=== PATIENT | male | born 1940 | race Caucasian/White ===

== ENCOUNTER → 2017-04-03 | Outpatient (CLI) | payer MEDICARE, OTHER ==
[~2017-04-03] MED LIST: ACCUPRIL40 MG PO; ASPIRIN E.C.325 MG PO; CIPRO500 MG PO; COREG25 MG PO; FLOMAX0.4 MG PO; HYDROCODONE BIT1 T11 PO; IMDUR SA60 M1 PO; LASIX80 MG PO; METFORMIN HCL500 MG PO; NORCO 325 MG-51 TAB PO; PREDNICOT10 MG PO; ZOCOR80 MG PO; ZOFRAN4 MG PO
[2017-04-03 12:47] LABS: BASO % 0.5 % (0.0-1.0); EOS # 0.2 10*3/uL (0.0-0.4); EOS % 2.6 % (1.0-4.0); HEMATOCRIT 35.7 % (42.0-52.0); HEMOGLOBIN 11.5 g/dl (14.0-18.0); LYMPH # 1.3 10*3/uL (1.3-4.4); LYMPH % 19.2 % (27.0-41.0); MEAN CELL VOLUME 99.7 fl (80.0-94.0); MEAN CORPUSCULAR HGB 32.1 pg (27.0-31.0); MEAN CORPUSCULAR HGB CONC 32.2 g/dl (33.0-37.0); MEAN PLATELET VOLUME 10.5 fl (9.6-12.3); MONO # 0.6 10*3/uL (0.1-1.0); MONO % 8.4 % (3.0-9.0); NEUT # 4.5 10*3/uL (2.3-7.9); PLATELET COUNT AUTOMATED 167 10*3/uL (130-400); RED BLOOD COUNT 3.58 10*6/uL (4.50-5.90); RED CELL DISTRI WIDTH 15.2 % (0-14.5); WHITE BLOOD COUNT 6.6 10*3/uL (4.8-10.8)
[2017-04-03 13:14] LABS: ALBUMIN 3.4 gm/dl (3.1-4.5); CREATININE 1.89 mg/dL (0.70-1.30); POTASSIUM 3.9 mmol/L (3.5-5.1); TOTAL PROTEIN 6.9 gm/dL (6.4-8.2)
[2017-04-03 13:22] LABS: THYROID STIM HORMONE (HS) 2.19 uIU/ml (0.358-4.75)
== END | disposition home or self-care (01) ==
LOC: LAB 12:21
PROVIDERS: Internal Medicine
DX: E11.9 Type 2 diabetes mellitus without complications (principal); I50.33 Acute on chronic diastolic (congestive) heart failure; E78.2 Mixed hyperlipidemia

== ENCOUNTER → 2017-04-16 | Outpatient (CLI) | payer MEDICARE, OTHER ==
[~2017-04-16] MED LIST changes: +BUMETANIDE2 MG PO; +GLYBURIDE5 MG PO; +POTASSIUM CHLO10 ME5 PO; +TRICOR48 MG PO; +ZOCOR20 MG PO
== END | disposition home or self-care (01) ==
LOC: CARD 14:40
DX: I50.32 Chronic diastolic (congestive) heart failure (principal); I07.1 Rheumatic tricuspid insufficiency

== ENCOUNTER 2017-04-21 19:40 | Inpatient (IN) | payer MEDICARE, OTHER ==
[~2017-04-21] VITALS: Ht 167.6 cm; Wt 108.0 kg
--- NOTE | ~2017-04-21 | ST ---
[place], [place] EXERCISE STRESS TEST REPORT NAME: FAN ELIZABETH UNIT #: [id number] ROOM: [place] [address] DOCTOR: SAM HUBER MD BIRTHDATE: [birth year] DOS: 04/26/2017 LEXISCAN STRESS EKG. REFERRING PHYSICIAN: Dr. Juanito Singh. INDICATION: CHF, shortness of breath, CAD. The patient underwent standard protocol Lexiscan stress EKG. The patient's baseline EKG shows atrial fibrillation with nonspecific ST-T wave changes. The patient's baseline heart rate is 80 with a blood pressure 136/78. The patient's peak heart rate was 95 with a blood pressure of 118/70. The patient had no chest pain, no EKG changes, no significant arrhythmias aside from baseline AFib. SUMMARY OF FINDINGS: Unremarkable Lexiscan stress EKG. Please see separate report for perfusion scan results. SAM HUBER MD CM:STRESS:EXERCISE STRESS TEST REPORT [id number] SAM HUBER MD
--- NOTE | ~2017-04-21 | PR ---
[place], [place] PROGRESS NOTE NAME: FAN ELIZABETH UNIT #: [id number] ROOM: [facility] DOCTOR: SANDY KEITH MD,SAVAGE BIRTHDATE: [birth year] DOS: 04/30/2017 SUBJECTIVE: He has been noted comfortable at this time without any acute distress. Denies symptoms of acute shortness of breath, coughing, sputum expectoration, using the BiPAP at nighttime. OBJECTIVE: VITAL SIGNS: For the patient which has been recorded shows normal temperature, respiratory rate 18, heart rate 84, blood pressure 104/56. Pulse oxygen saturation on room air was 96% saturation. HEAD, EARS, EYES, NOSE AND THROAT: No acute change. Chronic obesity. NECK: Supple. CARDIOVASCULAR: S1, S2 audible. LUNGS: The patient was noted without any wheezing or crackles at this time. Breaths are noted mild to moderate decreased lower lungs. ABDOMEN: Soft, nontender. IMPRESSION: 1. Progressive resolution of acute hypercapnic respiratory failure as well as mental status changes. 2. Chronic obesity with suspected obstructive sleep apnea disorder. 3. Resolving acute congestive heart failure. PLAN OF MANAGEMENT: Continuation of the current therapy, plan of care at this time as in progress. Usual care. All other supportive plan of management and treatment. SAVAGE DELGADO MD CM:PNTRANS 22 SAVAGE KEITH MD 04/30/172021 interface
--- NOTE | ~2017-04-21 | PR ---
[place], [place] PROGRESS NOTE [id number] UNIT #: [id number] ROOM: 501 DOCTOR: NATE CORLEY MD BIRTHDATE: [birth year] DOS: 04/29/2017 SUBJECTIVE: The patient was seen today, 04/29/2017, at his bedside for followup of his coronary artery disease, ischemic cardiomyopathy, atrial fibrillation and chronic hypercapnic respiratory failure. He presented to hospital on 04/21/2017 with confusion and hyperglycemia. He was found to be in heart failure and subsequently also found to be in hypercapnic respiratory failure. Blood gases showed pCO2 of 86 on April 25 with a pH of 7.229. With diuresis, bronchodilators and BiPAP, his most recent blood gas on April 27 showed a pCO2 of 42.6 and a pH of 7.476. The patient states that he does feel much better. He is awake, alert and oriented, whereas earlier in the hospital, he was confused and belligerent. He states that he does not receive routine cardiac followup and has "not taking care of himself." PHYSICAL EXAMINATION: VITAL SIGNS: Today his pulse is 77 and regular, blood pressure is 121/81. He is afebrile. NECK: Supple. He has no jugular distention or hepatojugular reflux. Carotids are full. LUNGS: Respirations are unlabored. His chest has decreased breath sounds at the bases, but no wheezes or rales. He has no presacral edema. HEART: Has an irregularly irregular rhythm with distant tones. ABDOMEN: Benign. EXTREMITIES: Showed trace edema bilaterally. He is wearing support stockings. DIAGNOSTIC STUDIES: loss prevention auditor shows atrial fibrillation with a controlled ventricular response and frequent premature ventricular contractions. An echocardiogram on 04/16/2017 showed normal left ventricular size with global hypokinesis. There was mild concentric left ventricular hypertrophy. Left ventricular systolic function was moderately decreased with an ejection fraction between 30 and 35%. There was grade 3 diastolic relaxation dysfunction. Right heart size and function were normal. The left atrium was severely dilated. The inferior vena cava was dilated with decreased inspiratory collapse. There was no apparent pulmonary hypertension. There was at least moderate mitral insufficiency present. A pharmacologic stress test on 04/26/2017 showed a large, mostly fixed defect involving the basal and mid segment of the inferolateral wall with an ejection fraction of 59%. Most recent chest x-ray on 04/26/2017 showed no infiltrates or effusions. The cardiomediastinal silhouette was enlarged. LABORATORY DATA: Hemoglobin is 11.4, white count 9400, platelet count 155,000. Sodium 144, potassium 3.5, BUN 38, creatinine 1.63. IMPRESSION: 1. Coronary artery disease, status post previous myocardial infarction. The [place], [place] PROGRESS NOTE NAME: FAN ELIZABETH UNIT #: [id number] ROOM: [facility] DOCTOR: NATE CORLEY MD BIRTHDATE: [birth year] patient had remote bypass surgery. Current studies show minimal reversible ischemia. 2. Ischemic cardiomyopathy. Echocardiographic ejection fraction in 04/16/2017 was between 30 and 35% with stage III diastolic dysfunction. 3. Diabetes mellitus. 4. Hypertension. 5. Hypercapnic respiratory failure. 6. Dyslipidemia. 7. Permanent atrial fibrillation. 8. Chronic kidney disease stage 3. 9. Morbid obesity. PLAN: We will continue his diuresis, anticoagulation and guideline directed medical therapy. His manufacturing specialist will continue their aggressive management of his lung disease. As an outpatient in the near future we will consider switching him from lisinopril to Entresto. After 3 months of maximally tolerated guideline directed medical therapy an echocardiogram will be repeated. If his ejection fraction remains low, he may be a candidate for ICD placement for primary prevention. We thank the hospitalist physicians for asking our advice regarding the patient's care. NATE CORLEY MD CM:PNTRANS [id number] NATE CORLEY MD 04/29/17905 interface
--- NOTE | ~2017-04-21 | CON ---
[place], [place] REPORT OF CONSULTATION NAME: FAN ELIZABETH UNIT #: [id number] ROOM: [place] [address] DOCTOR: SANDY KEITH MDSAVAGE BIRTHDATE: [birth year] DOS: 04/26/2017 PULMONARY CONSULTATION, EVALUATION AND MANAGEMENT CONSULTATION REQUESTED BY: Hospitalist Service. REASON FOR CONSULTATION: For assessment of recurrent acute respiratory failure. HISTORY OF PRESENT ILLNESS: This is a 76-year-old white male who has been admitted to the hospital on 04/21/2017 under care of the hospitalist services. The original reason for admission of the patient was noted as change in mental status related to severe hyperglycemia with generalized weakness, fatigue and some symptoms of shortness of breath. The patient has been treated in this hospital since 04/21/2017. The hypoglycemia for the patient has been noted resolved. Getting into course of hospitalization, the patient noted extremely agitated per the patient and confused. He has been trying to leave the hospital previously as well. The patient has been seen by the Psychiatry services, Dr. Osorio and ruba Murray to manage his agitation. The patient was noted violent with the nursing staff as well on couple of occasions. Currently, the patient has been admitted in the Intensive Care Unit and has been managed. He has been noted to be pleasant at this time with assessment this morning as the patient was seen. Some of his family members had been present along with the patient as well. The patient has not been reported any symptoms of agitation in the last 24 hours. The arterial blood gas of the patient was done, which shows severe hypercapnia for this patient. The patient was started on the BiPAP for the medical management. Adjustment of the BiPAP has been done, reviewed arterial blood gases by me in the last 12 hours of hospitalization. The patient has used the BiPAP straight for about 18 hours that was started yesterday resulting in improvement in his mental status. He has been noted with symptoms of shortness breath, which has been noted absent at this time of assessment. He has been also seen by Dr. Patel for the patient from the cardiology assessment for the medical management of congestive heart failure. The echocardiogram of the patient was noted with cardiomyopathy, systolic, diastolic dysfunction, left ventricle as well dilatation of the right ventricle as well. The patient has been noted with edema of the lower extremity on admission as well. REVIEW OF SYSTEMS: CONSTITUTIONAL SYMPTOMS: At this time, the patient was noted with some fatigue and tiredness without any symptoms of fever or chills reported. EYES: Denies any burning, dryness, redness, discharge or pain. EARS, NOSE, THROAT SYMPTOMS: Denies symptoms of sore throat, hoarseness, otalgia. CARDIOVASCULAR: Edema of the lower extremity. There were no symptoms of anginal pain. There were no symptoms of palpitation reported. GASTROINTESTINAL SYMPTOMS: Denies dysphagia, nausea, vomiting, diarrhea, abdominal pain, hematemesis, melena or hematochezia. SKIN: No acute lesions or rashes reported. CENTRAL NERVOUS SYSTEM: There were no symptoms of headache, dizziness or diplopia reported. [place], [place] REPORT OF CONSULTATION NAME: FAN ELIZABETH UNIT #: [id number] ROOM: [place] [address] DOCTOR: ORTEGA SHARIF MDM BIRTHDATE: [birth year] Remaining systems were reviewed of the patient, they were noted all negative. PAST MEDICAL HISTORY: 1. The patient was noted with a history of chronic kidney disease stage 3. 2. BPH. 3. Morbid obesity. 4. Coronary artery disease with past myocardial infarction. SOCIAL HISTORY: The patient is , has 4 children. Denies any history of alcohol use or illicit drugs. Tobacco use, the patient was reported in the past that has been discontinued many years ago, unable to give me the exact date of discontinued tobacco products, has been noted with tobacco use about a pack of cigarettes per day. WORK HISTORY: The patient noted as worked in the [employer] for approximately 1 year. Denies any history of chronic alcohol use or any illicit drugs. PAST SURGICAL HISTORY: Noted with history of coronary artery bypass grafting. FAMILY HISTORY: Reported father at 70 years old with complication of ALS. Mother at the age of 9696 years old from complications of the breast and colon cancer. HOME MEDICATIONS: On admission reported as use of aspirin, Bumex, Coreg, TriCor, glyburide, Imdur, metformin, potassium chloride, Accupril, simvastatin and Flomax. DRUG ALLERGIES: Reported as no known drug allergies. PHYSICAL EXAMINATION: GENERAL: This is a 76-year-old male who has been currently noted to be awake and alert, seemed to be oriented without any agitated behavior. The patient noted the calm. Height of the patient on admission was noted as 5 feet 6 inches, weight of 261 pounds, BMI 42.1. VITAL SIGNS: For the patient reported as a normal temperature, respiratory rate of 28 noted yesterday, currently about 15 breaths per minute, heart rate ranging between 75-82, blood pressure 132/75-114/63. Intake for the patient was 450, output 1525 mL, negative 1075 mL. Pulse oxygen saturation 30%. The BiPAP was 100% saturation. HEENT: Moderate obesity. Head was atraumatic. Eyes nonicterus. Severely reduced posterior pharyngeal space. CARDIOVASCULAR: S1, S2 is audible. LUNGS: The patient noted generalized decreased breath sounds, severe decreased breath sounds noted in the right lower lung. Crackles present in the right mid lung as well as the left lung base. ABDOMEN: Noted with chronic moderate obesity. Bowel sounds present without tenderness. EXTREMITIES: The patient noted chronic changes with some edema as well, which was still noted moderate amount, 2+ edema. MUSCULOSKELETAL: The patient was noted without any deformities. [place], [place] REPORT OF CONSULTATION NAME: FAN ELIZABETH UNIT #: [id number] ROOM: [place] [address] DOCTOR: SANDY KEITH MD,[facility] BIRTHDATE: [birth year] SKIN: Visible skin. No lesions or rashes. CENTRAL NERVOUS SYSTEM: Appeared to be intact. LABORATORY DATA: BMP on 04/25/2017, BUN 39, creatinine 1.87, glucose 147. Sodium 149, CO2 of 37. The TSH noted 1.9 on the 04/24/2017. The ammonia level on 04/24/2017 were noted as 11. The admission labs for this patient's CBC on 04/21/2017, hemoglobin 11.5, remaining CBC was normal. Lactic acid at that time was 2.1. Glucose of the patient was noted as 141. PT and PTT of the patient on 04/21/2017 was normal. On the admission, the BUN noted 28, creatinine 1.72 on 04/22/2017. The labs for the patient this morning, CBC of this morning, hemoglobin 12, WBC count normal, platelet count remains normal. CMP this morning, BUN 35, creatinine 1.73, glucose 163, sodium 150. Review of the arterial blood gas of the patient, which was done from yesterday and this morning, arterial blood gas yesterday at noon, pH of 7.22, pCO2 86, pO2 46. Repeat arterial blood gas of the patient, pH of 7.36, pCO2 of 61, pO2 of 104. Another arterial blood gas of the patient, pH of 7.40, pCO2 50.2, pO2 of 101 that was done at 8:47 p.m. This was done on the BiPAP setting was changed for the patient at that time 09/01. The review of the radiology data for this patient, the first chest x-ray that was done on admission of the patient on 04/21/2017 noted cardiomegaly without any acute abnormality. Chest x-ray at 04/22/2017 was noted with cardiomegaly with mild pulmonary venous congestion. The echocardiogram was done for the patient in 03/2017 showed left ventricular ejection 30-35% with evidence of right ventricular dilatation. IMPRESSION: 1. The patient who has been currently admitted to the hospital noted with severe acute hypercarbia with acute respiratory failure, most likely related to the congestive heart failure with possibility of exacerbation of chronic obstructive pulmonary disease cannot be excluded. Possibility of obesity hypoventilation would be considered as well. 2. Agitated behavior, multifactorial including the possibility of hypercarbia cannot be excluded previously. 3. The patient with history of coronary artery disease, type 2 diabetes mellitus. 4. Chronic kidney disease as well. PLAN OF MANAGEMENT: Diuretic to be continued for the patient with continued medical management under care of the Cardiology Services. The patient was started on the DuoNeb for this patient for the bronchodilatation. The patient also started on steroids 40 mg q.8h. At this time, the dose will be decreased to 40 mg daily. Use of the BiPAP intermittent during the daytime would be given every 2 hours on and 2 hours off and continue at nighttime. Outpatient assessment ____ should be done for the assessment of suspected obstructive sleep apnea disorder as well, which would appear to be likely. Also, repeat arterial blood gases for this patient, room air for this patient prior to discharge to assess the resting hypercarbia to rule out the possibility of obesity hypoventilation syndrome. Chest x-ray PA lateral for the patient was ordered to assess the patient for ruling out pleural effusion because of the current decreased breath sounds heard on the right chest with crackles. All other supportive plan of management to be continued. Usual care. Additional [place], [place] REPORT OF CONSULTATION NAME: FAN ELIZABETH UNIT #: [id number] ROOM: [place] [address] DOCTOR: SANDY KEITH MD,SAVAGE BIRTHDATE: [birth year] treatment changes to be made for the patient based on his progression of the illness. The patient may be transferred from the intensive care unit if he remains stable in the next several hours to a telemetry floor again with possible closed 1:1 observation if necessary to be done. All other plan of management as in progress will be continued. Usual care. Thank you for allowing me to participate in the care of this patient. SAVAGE DELGADO MD CM:CONSTR:REPORT OF CONSULTATION 1339 04/27/17 0037 interface
--- NOTE | ~2017-04-21 | EKG ---
[place], [place] ELECTROCARDIOGRAM REPORT NAME: FAN ELIZABETH UNIT #: [id number] ROOM: 415 DOCTOR: ELLIE ORTEGA MD BIRTHDATE: [birth year] DOS: 04/21/2017 TIME: 1958 hours. Atrial fibrillation with ventricular rate of 65 beats per minute. PVCs are likely to be present, possibility of aberrant conduction should be considered. Complete right bundle branch block. Nonspecific T-wave changes in lateral leads. An abnormal ECG. No previous tracing is available for comparison. ELLIE ORTEGA MD CM:EKGRPT:ELECTROCARDIOGRAM REPORT [id number] ELLIE ORTEGA MD
--- NOTE | ~2017-04-21 | PR ---
[place], [place] PROGRESS NOTE NAME: FAN ELIZABETH UNIT #: [id number] ROOM: Former[facility] named [facility] DOCTOR: SANDY KEITH MD,SAVAGE BIRTHDATE: [birth year] DOS: 05/01/2017 SUBJECTIVE: He has been noted comfortable at this time, was planned for possible discharge to the [facility] facility. The shortness of breath continued to resolve progressively. Denies symptoms of chest pain or any abdominal pain. Denies symptoms of nausea, vomiting or diarrhea. OBJECTIVE: VITAL SIGNS: For the patient which has been recorded shows the temperature noted as normal. The respiratory rate of the patient recorded as 18, heart rate 81, blood pressure 122/60. The pulse oxygen saturation of the patient recorded as 96% saturation on room air. HEENT: Examination shows no acute change. NECK: Supple. CARDIOVASCULAR: S1, S2 is audible. LUNGS: The patient was noted without any wheezing or crackles at the present time. ABDOMEN: Soft, nontender, positive present. EXTREMITIES: The patient noted without any acute edema. IMPRESSION: Stable respiratory status, progressive resolution of acute hypercapnia hypoxic respiratory failure, chronic obstructive pulmonary disease, hypercarbia and debility. PLAN OF TREATMENT: No changes in the plan of therapy for the patient at this time. Continue the current plan of management of the patient as ongoing. Usual care. Supportive care and other therapies. SAVAGE DELGADO MD CM:PNTRANS [id number] SAVAGE KEITH MD 05/02/17 0020 interface
--- NOTE | ~2017-04-21 | PR ---
[place], [place] PROGRESS NOTE NAME: FAN ELIZABETH UNIT #: [id number] ROOM: 501 DOCTOR: SANDY KEITH MD,SAVAGE BIRTHDATE: [birth year] DOS: 04/29/2017 SUBJECTIVE: He has been noted comfortable at this time, sitting on side of the bed without any acute distress. Denies symptoms of chest pain, hemoptysis or any abdominal pain. OBJECTIVE: VITAL SIGNS: Normal temperature, respiratory rate 20, heart rate 74, blood pressure 102/69. The pulse oxygen saturation on room air 96% saturation recorded. HEENT: No acute change. NECK: Supple. CARDIOVASCULAR: S1, S2 is audible. LUNGS: Without any wheezing or crackles. ABDOMEN: Soft, obese, nontender. EXTREMITIES: Without any acute edema. IMPRESSION: 1. Progressive resolution of acute hypercapnic respiratory failure, acute congestive heart failure, possibility of COPD as well. 2. Chronic morbid obesity. 3. Suspected obstructive sleep apnea disorder. PLAN OF MANAGEMENT: No changes from the pulmonary standpoint. Continue current therapy, plan of management previously in progress. Usual care. Monitor respiratory status. Discharge the patient to the nursing facility whenever desired from the pulmonary standpoint. SAVAGE DELGADO MD CM:PNTRANS [id number] SAVAGE KEITH MD 04/29/17 2337 interface
--- NOTE | ~2017-04-21 | PR ---
[place], [place] PROGRESS NOTE NAME: FAN ELIZABETH UNIT #: [id number] ROOM: [facility] DOCTOR: SANDY KEITH MD,SAVAGE BIRTHDATE: [birth year] DOS: 04/28/2017 SUBJECTIVE: He has been noted comfortable at this time, awake and alert, transferred to telemetry floor yesterday. The patient was noted without any acute distress this morning. He used BiPAP last night. OBJECTIVE: VITAL SIGNS: Normal temperature, respiratory rate of 20, heart rate 85, blood pressure 108/48. The pulse oxygen saturation of the patient on room air is 93% saturation. HEENT: Moderate obesity. NECK: Supple. CARDIOVASCULAR: S1, S2 audible. LUNGS: Clear. ABDOMEN: Soft, nontender. EXTREMITIES: Without any edema. LABORATORY DATA: BUN today noted 44, creatinine 1.69, glucose 224. IMPRESSION: 1. The patient with resolving acute respiratory failure with hypercapnia progressively. 2. The patient with congestive heart failure as well. 3. Possible exacerbation of chronic obstructive pulmonary disease as well. PLAN OF TREATMENT: Continue the BiPAP. The Solu-Medrol which has been given 20 mg to the patient at this time will be decreased to 20 mg daily for the next 3 days and then stop it. Continuation of the BiPAP use. Outpatient assessment of the patient for pulmonary disease including sleep apnea disorder would be considered. SAVAGE DELGADO MD CM:PNTRANS [phone] SAVAGE KEITH MD 04/28/17 223 interface
--- NOTE | ~2017-04-21 | PR ---
[place], [place] PROGRESS NOTE NAME: FAN ELIZABETH UNIT #: [id number] ROOM: [facility] DOCTOR: SANDY KEITH MD,SAVAGE BIRTHDATE: [birth year] DOS: 05/02/2017 SUBJECTIVE: He has been noted comfortable at this time, resting for the patient on his bed. Denies symptoms of chest pain or any abdominal pain. The patient has been using the BiPAP at nighttime, in the morning time ____ oxygen at times. OBJECTIVE: VITAL SIGNS: Normal temperature, respiratory rate 20, heart rate of 48, blood pressure 104/64. Pulse oxygen saturation of the patient recorded as 96% on room air. HEENT: Examination shows head was atraumatic. Eyes nonicterus. NECK: Supple. CARDIOVASCULAR: S1, S2 is audible. LUNGS: The patient was noted without any wheezing or crackles. ABDOMEN: Soft, nontender. IMPRESSION: 1. The patient with stable respiratory status with resolution of acute hypercapnic respiratory failure, progressive. 2. Suspected obstructive sleep apnea disorder. 3. Mild bradyarrhythmia noted this morning, but noted normal heart rate previously. PLAN OF TREATMENT: Discharge planning per the primary care physician. No change in pulmonary standpoint. Outpatient assessment in a couple of weeks for the patient post discharge were recommended. SAVAGE DELGADO MD CM:PNTRANS [phone] SAVAGE KEITH MD 05/02/17 1850 interface
--- NOTE | ~2017-04-21 | CON ---
[place], [place] REPORT OF CONSULTATION NAME: FAN ELIZABETH UNIT #: [id number] ROOM: 415 DOCTOR: SHARITA CASTELLANOS MD BIRTHDATE: [birth year] DOS: 04/24/2017 CHIEF COMPLAINT: "I see a squirrel or over there, but I know it is not there." HISTORY OF PRESENT ILLNESS: This is a 76-year-old white male who presented to [facility] with an altered mental status. The patient reports that his diabetes has been out of control and he has also had extreme shortness of breath and could not lie flat without choking and being unable to breathe. In the course of being in the hospital, the patient has exhibited some psychotic symptoms. He is seeing squirrels in his room or people in his room. He did attempt to get dressed and leave the hospital stating that he was told that he has been discharged and he was going to have his discharge paper soon when in reality this never happened. His daughter, who was present during the time of the evaluation, reports that the only time he has acted this way before is when his blood sugar is bottom out. However, his blood sugars most recently have been within normal limits. The patient denies any depressive symptoms, any symptoms suggestive of beni or hypomania and he denies any persistent psychotic symptoms. PAST MEDICAL HISTORY: Benign prostatic hypertrophy, chronic kidney disease stage 3, diabetes, hyperlipidemia, morbid obesity, and a history of a myocardial infarction. MENTAL STATUS: He is alert and oriented. He denies any issues with his memory. Mood is euthymic. Affect appropriate. He does endorse while I was talking to him seeing a squirrel in his room, but he also stated he realized it was not there. He was not bothered in anyway by it. It did not cause him any distress and he is able to function irrespective of seeing things. DIAGNOSIS: Brief psychotic disorder. PLAN: I will order a serum ammonia level, TSH, vitamin B12 and vitamin D level to finish some of the organic workup. At this point, since it is not problematic to him, unless the symptoms worsen, I believe he can be discharged safely at home. He can have followup if needed in the office. SHARITA CASTELLANOS MD CM:CONSTR:REPORT OF CONSULTATION 1054 04/24/17 1359 interface
--- NOTE | ~2017-04-21 | PR ---
[place], [place] PROGRESS NOTE NAME: FAN ELIZABETH UNIT #: [id number] ROOM: [facility] [place] DOCTOR: SANDY KEITH MD,SAVAGE BIRTHDATE: [birth year] DOS: 04/27/2017 SUBJECTIVE: He has been noted comfortable at this time, resting on the bed, noted fully awake, alert, oriented and cooperative with examination without any distress. The patient has used the BiPAP as ordered previously. This morning noted in use of oxygen supplementation. He has not been noted any symptoms of chest pain. There were symptoms of acute shortness of breath. OBJECTIVE: VITAL SIGNS: For the patient, which was recorded shows a normal temperature, respiratory rate 17, heart rate of 79, blood pressure 117/84. The pulse oxygen saturation noted on room air as 92%. HEENT: Examination shows no acute change. NECK: Supple. CARDIOVASCULAR: S1, S2 is audible. LUNGS: The patient was noted without any wheezing or crackles at the present time. ABDOMEN: Soft, nontender with obesity. EXTREMITIES: With edema. The visible skin, no lesions or rashes. MUSCULOSKELETAL: Without any acute deformities. LABORATORY DATA: CBC of 04/27, WBC count 9.4, hemoglobin 11.4, hematocrit of 34.7, platelet count 155,000. Arterial blood gas that was done on room air today shows pH 7.47, pCO2 of 42, pO2 69. CMP this morning, BUN 44, creatinine 1.80, glucose 172. Sodium 148, potassium 3.8. AST of 48. IMPRESSION: 1. The patient noted severe acute hypercapnic respiratory failure result of acute congestive heart failure for this patient very likely. 2. Possibility of Pickwickian syndrome was excluded with current arterial blood gases. 3. Mild acute kidney disease secondary to congestive heart failure as well. 4. Severe debility. 5. Resolution of the agitated behavior. PLAN OF MANAGEMENT: The patient could be transferred to medical floor at this time as he has been noted comfortable without any agitated behavior and cooperative with the management and the assessment. Diuretic therapy to be continued for the patient. Monitor kidney function closely. The bronchodilator p.r.n. use as well. Additional treatment changes will be done based on the progression of illness. Possibility of COPD exacerbation was also considered regarding getting Solu-Medrol 40 mg daily. [place], [place] PROGRESS NOTE NAME: FAN ELIZABETH UNIT #: [id number] ROOM: [facility] [place] DOCTOR: SAVAGE SHARIF MD BIRTHDATE: [birth year] SAVAGE DELGADO MD CM:ASHLEY [id number] SAVAGE KEITH MD 04/28/17 0045 interface
--- NOTE | ~2017-04-21 | PR ---
[place], [place] PROGRESS NOTE [id number] UNIT #: [id number] ROOM: 501 DOCTOR: NATE CORLEY MD BIRTHDATE: [birth year] DOS: 05/01/2017 SUBJECTIVE: The patient was seen at his bedside today, 05/01/2017, for followup of his ischemic cardiomyopathy and congestive heart failure along with his atrial fibrillation and chronic hypercapnic respiratory failure. The patient continues to diurese despite the fact that we switched him from IV to oral Lasix. He is breathing much more easily and is able to walk in the halls with supplemental oxygen without distress. PHYSICAL EXAMINATION: VITAL SIGNS: Today his pulse is 75 and irregularly irregular, blood pressure is 110/50. He is afebrile. He weighs 109.4 kilograms with a body mass index of 38.9. NECK: Supple. He has no jugular distention or hepatojugular reflux. Carotids are full. LUNGS: Respirations are unlabored. He has decreased breath sounds at the bases, but no wheezes or rales. He has no presacral edema. HEART: Has an irregularly irregular rhythm without murmurs or gallops. The PMI is not displaced. ABDOMEN: Soft and normally active without masses, organomegaly or bruits. EXTREMITIES: Showed no edema. He is wearing support stockings. LABORATORY DATA: ekg monitor tech continues to show atrial fibrillation. Hemoglobin is 11.4, white count 9400, platelet count 155,000. Sodium 141, potassium 3.6, BUN 36 and creatinine 1.41. Creatinine is falling steadily despite ongoing diuresis. IMPRESSION: 1. Coronary artery disease, status post previous myocardial infarction. The patient had remote bypass surgery. Current noninvasive studies show minimal reversible ischemia. 2. Ischemic cardiomyopathy, ejection fraction in March 2017 was between 30 and 35% with stage III diastolic dysfunction. 3. Diabetes mellitus. 4. Hypertension. 5. Hypercapnic respiratory failure -- improved. 6. Dyslipidemia. 7. Permanent atrial fibrillation. 8. Chronic kidney disease stage 3. 9. Morbid obesity. PLAN: His current medical regimen appears adequate at this time. From our perspective, he could be discharged to home on his current regimen. We will follow up with him in the office, at which time we can discuss whether he should stay on his current medications or be switched from lisinopril to Entresto. After 3 months of maximally tolerated guideline directed medical therapy, an echocardiogram will be repeated to determine if he has responded appropriately. We thank the hospitalist physicians for asking our advice regarding his care. [place], [place] PROGRESS NOTE NAME: FAN ELIZABETH UNIT #: [id number] ROOM: [facility] DOCTOR: NATE CORLEY MD BIRTHDATE: [birth year] NATE CORLEY MD CM:PNTRANS [phone] NATE CORLEY MD 05/01/172118 interface
--- NOTE | ~2017-04-21 | PR ---
[place], [place] PROGRESS NOTE NAME: FAN ELIZABETH [facility] #: [id number] UNIT #: [id number] ROOM: 501 DOCTOR: NATE CORLEY MD BIRTHDATE: [birth year] DOS: 04/30/2017 CARDIOLOGY PROGRESS NOTE SUBJECTIVE: The patient was seen earlier today at his bedside on 04/30/2017 for followup of his ischemic cardiomyopathy, coronary artery disease, atrial fibrillation and chronic hypercapnic respiratory failure. The patient has diuresed briskly and has lost several pounds. He is breathing much more easily and is able to spend long periods of time off of CPAP without distress. He remains on intravenous diuretics. PHYSICAL EXAMINATION: VITAL SIGNS: Today his pulse is 92 and irregularly irregular, blood pressure is 117/63. He is afebrile. NECK: Supple. He has no jugular distention. Carotids are full. LUNGS: Respirations are unlabored. He does have decreased breath sounds at the bases, but no wheezes or rales. There is no presacral edema. HEART: Has an irregularly irregular rhythm with distant tones. ABDOMEN: Soft and normally active. EXTREMITIES: Showed trace edema bilaterally. He is wearing support stockings. LABORATORY DATA: His lunchroom monitor continues to show atrial fibrillation with a controlled ventricular response. Sodium is 140, potassium 3.6, BUN 38, creatinine 1.55. IMPRESSION: 1. Coronary artery disease, status post previous myocardial infarction. The patient had remote bypass surgery. Current noninvasive studies show minimal reversible ischemia. 2. Ischemic cardiomyopathy, ejection fraction in March 2017 was between 30 and 35% with stage III diastolic dysfunction. 3. Diabetes mellitus. 4. Hypertension. 5. Hypercapnic respiratory failure. 6. Dyslipidemia. 7. Permanent atrial fibrillation. 8. Chronic kidney disease stage 3. 9. Morbid obesity. PLAN: We will switch him from IV to oral diuretics. If he continues to diurese and maintain a negative fluid balance, I believe he can be discharged to home in the next 24 hours. As an outpatient, we can consider whether we should switch him from lisinopril to Entresto. After 3 months of maximally tolerated guideline directed medical therapy, an echocardiogram will be repeated. If his ejection fraction remains low, he may be a candidate for ICD placement for primary prevention. We thank the hospitalist physicians for asking our advice regarding his care. [place], [place] PROGRESS NOTE NAME: FAN ELIZABETH UNIT #: [id number] ROOM: [facility] DOCTOR: NATE CORLEY MD BIRTHDATE: [birth year] NATE CORLEY MD CM:PNTRANS [phone] NATE CORLEY MD 04/30/172032 interface
[2017-04-21 19:40] VITALS: BP 116/61
[~2017-04-21 19:40] MED LIST changes: -BUMETANIDE2 MG PO; -GLYBURIDE5 MG PO; -POTASSIUM CHLO10 ME5 PO; -TRICOR48 MG PO; -ZOCOR20 MG PO
[2017-04-21] MEDS ORDERED: TRICOR48 MG PO (20:06)
[2017-04-21] MEDS ORDERED: GLYBURIDE5 MG PO (20:07)
[2017-04-21] MEDS ORDERED: ZOCOR20 MG PO (20:07)
[2017-04-21 20:24] LABS: BASO % 0.3 % (0.0-1.0); EOS # 0.2 10*3/uL (0.0-0.4); EOS % 2.4 % (1.0-4.0); HEMATOCRIT 36.3 % (42.0-52.0); HEMOGLOBIN 11.5 g/dl (14.0-18.0); LYMPH # 1.2 10*3/uL (1.3-4.4); LYMPH % 18.7 % (27.0-41.0); MEAN CELL VOLUME 99.2 fl (80.0-94.0); MEAN CORPUSCULAR HGB 31.4 pg (27.0-31.0); MEAN CORPUSCULAR HGB CONC 31.7 g/dl (33.0-37.0); MONO # 0.4 10*3/uL (0.1-1.0); MONO % 6.4 % (3.0-9.0); NEUT # 4.7 10*3/uL (2.3-7.9); NEUT % 71.7 % (47.0-73.0); PLATELET COUNT AUTOMATED 157 10*3/uL (130-400); RED BLOOD COUNT 3.66 10*6/uL (4.50-5.90); RED CELL DISTRI WIDTH 14.9 % (0-14.5); WHITE BLOOD COUNT 6.5 10*3/uL (4.8-10.8)
[2017-04-21 20:31] VITALS: BP 125/102
[2017-04-21 20:37] LABS: ACT PARTIAL THROMBO TIME 28.5 SECONDS (20.8-31.5); INTERNATIONAL NORM RATIO 1.2 (2.0-3.5)
[2017-04-21 20:40] LABS: ALBUMIN 3.5 gm/dl (3.1-4.5); ALKALINE PHOSPHATASE 49 U/L (45-117); BUN 27 mg/dl (7-24); CHLORIDE 105 mmol/L (98-107); CREATININE 1.76 mg/dL (0.70-1.30); POTASSIUM 3.6 mmol/L (3.5-5.1); SGOT/AST 27 IU/L (3-35); SGPT/ALT 23 U/L (12-78); SODIUM 144 mmol/L (136-145); TOTAL PROTEIN 6.9 gm/dL (6.4-8.2)
[2017-04-21 20:41] LABS: TROPONIN I < 0.015 ng/ml (<0.045)
[2017-04-21 21:08] VITALS: BP 128/78
[2017-04-21 21:45] VITALS: BP 123/86
[2017-04-21] MEDS ORDERED: POTASSIUM CHLO10 ME5 PO (22:51)
[2017-04-21] MEDS ORDERED: BUMETANIDE2 MG PO (22:52)
[2017-04-21 23:14] LABS: BILIRUBIN NEGATIVE (NEGATIVE); BLOOD NEGATIVE (NEGATIVE); CLARITY CLEAR (CLEAR); COLOR YELLOW (YELLOW); GLUCOSE NEGATIVE (NEGATIVE); KETONE NEGATIVE (NEGATIVE); LEUKO ESTERASE NEGATIVE (NEGATIVE); NITRITE NEGATIVE (NEGATIVE); PH 5.5 (5.0-9.0); SPECIFIC GRAVITY 1.015 (1.005-1.030); UROBILINOGEN 0.2 E.U./dl (0.2-1.0)
[2017-04-21 23:21] LABS: BACTERIA 2+; EPITHELIAL CELLS 0-2; RBC 0-2 rbc/hpf (0-2)
[2017-04-22] VITALS: BP 131/83
[2017-04-22 04:00] VITALS: BP 139/77
[2017-04-22 05:35] LABS: ACT PARTIAL THROMBO TIME 28.3 SECONDS (20.8-31.5); INTERNATIONAL NORM RATIO 1.2 (2.0-3.5)
[2017-04-22 05:41] LABS: ALBUMIN 3.3 gm/dl (3.1-4.5); CREATININE 1.72 mg/dL (0.70-1.30); FREE T4 1.22 ng/dl (0.76-1.46); PHOSPHOROUS 3.8 mg/dL (2.5-4.9); POTASSIUM 3.7 mmol/L (3.5-5.1); TOTAL PROTEIN 6.7 gm/dL (6.4-8.2)
[2017-04-22 05:46] LABS: THYROID STIM HORMONE (HS) 1.14 uIU/ml (0.358-4.75)
[2017-04-22 07:18] LABS: BASO % 0.2 % (0.0-1.0); EOS % 0.2 % (1.0-4.0); HEMATOCRIT 34.9 % (42.0-52.0); HEMOGLOBIN 11.4 g/dl (14.0-18.0); LYMPH # 0.6 10*3/uL (1.3-4.4); LYMPH % 14.6 % (27.0-41.0); MEAN CELL VOLUME 96.9 fl (80.0-94.0); MEAN CORPUSCULAR HGB 31.7 pg (27.0-31.0); MEAN CORPUSCULAR HGB CONC 32.7 g/dl (33.0-37.0); MEAN PLATELET VOLUME 10.5 fl (9.6-12.3); MONO % 0.7 % (3.0-9.0); NEUT # 3.7 10*3/uL (2.3-7.9); NEUT % 83.8 % (47.0-73.0); PLATELET COUNT AUTOMATED 149 10*3/uL (130-400); RED CELL DISTRI WIDTH 14.8 % (0-14.5); WHITE BLOOD COUNT 4.4 10*3/uL (4.8-10.8)
[2017-04-22 07:39] VITALS: BP 136/79
[2017-04-22 08:12] LABS: VITAMIN D, 25-HYDROXY 56.8 ng/mL (30-100)
[2017-04-22 12:00] VITALS: BP 107/63
[2017-04-22 16:00] VITALS: BP 100/57
[2017-04-22 20:00] VITALS: BP 126/70
[2017-04-23] VITALS: BP 102/73
[2017-04-23 05:14] LABS: CREATININE 1.96 mg/dL (0.70-1.30); POTASSIUM 3.8 mmol/L (3.5-5.1)
[2017-04-23 08:00] VITALS: BP 118/83
[2017-04-23 08:20] LABS: BASO % 0.1 % (0.0-1.0); EOS % 0.2 % (1.0-4.0); HEMOGLOBIN 11.5 g/dl (14.0-18.0); LYMPH # 1.4 10*3/uL (1.3-4.4); LYMPH % 14.4 % (27.0-41.0); MEAN CELL VOLUME 97.8 fl (80.0-94.0); MEAN CORPUSCULAR HGB 31.3 pg (27.0-31.0); MEAN CORPUSCULAR HGB CONC 31.9 g/dl (33.0-37.0); MEAN PLATELET VOLUME 11.1 fl (9.6-12.3); MONO # 0.5 10*3/uL (0.1-1.0); MONO % 5.7 % (3.0-9.0); NEUT # 7.5 10*3/uL (2.3-7.9); NEUT % 79.2 % (47.0-73.0); PLATELET COUNT AUTOMATED 167 10*3/uL (130-400); RED BLOOD COUNT 3.68 10*6/uL (4.50-5.90); RED CELL DISTRI WIDTH 15.1 % (0-14.5); WHITE BLOOD COUNT 9.4 10*3/uL (4.8-10.8)
[2017-04-23 08:56] LABS: ALBUMIN 3.6 gm/dl (3.1-4.5); CREATININE 1.97 mg/dL (0.70-1.30); TOTAL PROTEIN 7.2 gm/dL (6.4-8.2)
[2017-04-23 12:00] VITALS: BP 124/77
[2017-04-23 16:00] VITALS: BP 112/76
[2017-04-23 20:00] VITALS: BP 131/79
[2017-04-24] VITALS: BP 119/70
[2017-04-24 06:04] LABS: ALBUMIN 3.5 gm/dl (3.1-4.5); CREATININE 1.79 mg/dL (0.70-1.30); POTASSIUM 3.6 mmol/L (3.5-5.1)
[2017-04-24 06:05] LABS: TOTAL PROTEIN 6.6 gm/dL (6.4-8.2)
[2017-04-24 06:13] LABS: BASO % 0.3 % (0.0-1.0); EOS # 0.2 10*3/uL (0.0-0.4); EOS % 2.2 % (1.0-4.0); HEMATOCRIT 36.4 % (42.0-52.0); HEMOGLOBIN 11.5 g/dl (14.0-18.0); LYMPH # 1.7 10*3/uL (1.3-4.4); LYMPH % 18.9 % (27.0-41.0); MEAN CELL VOLUME 98.1 fl (80.0-94.0); MEAN CORPUSCULAR HGB CONC 31.6 g/dl (33.0-37.0); MEAN PLATELET VOLUME 11.6 fl (9.6-12.3); MONO # 0.6 10*3/uL (0.1-1.0); MONO % 6.8 % (3.0-9.0); NEUT # 6.5 10*3/uL (2.3-7.9); NEUT % 71.5 % (47.0-73.0); PLATELET COUNT AUTOMATED 179 10*3/uL (130-400); RED BLOOD COUNT 3.71 10*6/uL (4.50-5.90); RED CELL DISTRI WIDTH 15.2 % (0-14.5); WHITE BLOOD COUNT 9.1 10*3/uL (4.8-10.8)
[2017-04-24 08:00] VITALS: BP 128/84
[2017-04-24 12:00] VITALS: BP 122/70
[2017-04-24 13:18] LABS: VITAMIN D, 25-HYDROXY 45.2 ng/mL (30-100)
[2017-04-24 16:00] VITALS: BP 115/71
[2017-04-24 20:23] VITALS: BP 122/91
[2017-04-25 00:39] VITALS: BP 114/63
[2017-04-25 06:47] LABS: CREATININE 1.87 mg/dL (0.70-1.30); POTASSIUM 3.8 mmol/L (3.5-5.1)
[2017-04-25 12:43] LABS: ABG HCO3 34.8 mmol/l (22-26); ABG O2 SATURATION 73.8 % (95-97); ARTERIAL BLOOD GAS PH 7.229 (7.35-7.45); ARTERIAL BLOOD GAS PO2 46.5 mmHg (80-90)
[2017-04-25 12:51] LABS: ARTERIAL BLOOD GAS PCO2 86.4 mmHg (35-45)
[2017-04-25 13:15] VITALS: BP 86/64
[2017-04-25 14:29] LABS: ABG BASE EXCESS 7.9 mmol/L (-2.0-2.0); ABG HCO3 34.4 mmol/l (22-26); ABG O2 SATURATION 97.6 % (95-97); ARTERIAL BLOOD GAS PCO2 61.5 mmHg (35-45); ARTERIAL BLOOD GAS PH 7.368 (7.35-7.45)
[2017-04-25 15:00] VITALS: BP 126/77
[2017-04-25 16:00] VITALS: BP 126/77
[2017-04-25 20:00] VITALS: BP 125/77
[2017-04-25 21:11] LABS: ABG BASE EXCESS 6.8 mmol/L (-2.0-2.0); ABG HCO3 32.3 mmol/l (22-26); ARTERIAL BLOOD GAS PCO2 52.2 mmHg (35-45); ARTERIAL BLOOD GAS PH 7.408 (7.35-7.45)
[2017-04-26] VITALS: BP 136/67
[2017-04-26 04:00] VITALS: BP 133/75
[2017-04-26 05:45] LABS: ALBUMIN 3.3 gm/dl (3.1-4.5); CREATININE 1.73 mg/dL (0.70-1.30); PHOSPHOROUS 3.3 mg/dL (2.5-4.9); TOTAL PROTEIN 6.9 gm/dL (6.4-8.2)
[2017-04-26 06:20] LABS: BASO % 0.2 % (0.0-1.0); HEMATOCRIT 38.7 % (42.0-52.0); LYMPH # 0.8 10*3/uL (1.3-4.4); MEAN CELL VOLUME 100.3 fl (80.0-94.0); MEAN CORPUSCULAR HGB 31.1 pg (27.0-31.0); MEAN PLATELET VOLUME 11.8 fl (9.6-12.3); MONO # 0.1 10*3/uL (0.1-1.0); MONO % 1.3 % (3.0-9.0); PLATELET COUNT AUTOMATED 154 10*3/uL (130-400); RED BLOOD COUNT 3.86 10*6/uL (4.50-5.90); RED CELL DISTRI WIDTH 14.8 % (0-14.5); WHITE BLOOD COUNT 5.9 10*3/uL (4.8-10.8)
[2017-04-26 08:00] VITALS: BP 125/76
[2017-04-26 12:00] VITALS: BP 128/68
[2017-04-26 16:00] VITALS: BP 135/69
[2017-04-26 20:00] VITALS: BP 121/61
[2017-04-27] VITALS (7 sets, daily range): BP systolic 100–145; BP diastolic 53–84
[2017-04-27 05:59] LABS: BASO % 0.1 % (0.0-1.0); EOS % 0.1 % (1.0-4.0); HEMATOCRIT 34.7 % (42.0-52.0); HEMOGLOBIN 11.4 g/dl (14.0-18.0); LYMPH # 1.5 10*3/uL (1.3-4.4); LYMPH % 15.5 % (27.0-41.0); MEAN CELL VOLUME 97.5 fl (80.0-94.0); MEAN CORPUSCULAR HGB CONC 32.9 g/dl (33.0-37.0); MEAN PLATELET VOLUME 11.3 fl (9.6-12.3); MONO # 0.5 10*3/uL (0.1-1.0); MONO % 5.8 % (3.0-9.0); NEUT # 7.3 10*3/uL (2.3-7.9); NEUT % 78.2 % (47.0-73.0); PLATELET COUNT AUTOMATED 155 10*3/uL (130-400); RED BLOOD COUNT 3.56 10*6/uL (4.50-5.90); RED CELL DISTRI WIDTH 14.9 % (0-14.5); WHITE BLOOD COUNT 9.4 10*3/uL (4.8-10.8)
[2017-04-27 06:02] LABS: ALBUMIN 3.2 gm/dl (3.1-4.5); CREATININE 1.8 mg/dL (0.70-1.30); POTASSIUM 3.4 mmol/L (3.5-5.1); TOTAL PROTEIN 6.3 gm/dL (6.4-8.2)
[2017-04-27 10:33] LABS: ABG BASE EXCESS 7.1 mmol/L (-2.0-2.0); ABG HCO3 31.3 mmol/l (22-26); ABG O2 SATURATION 94.3 % (95-97); ARTERIAL BLOOD GAS PCO2 42.6 mmHg (35-45); ARTERIAL BLOOD GAS PH 7.476 (7.35-7.45)
[2017-04-28 00:01] VITALS: BP 102/70
[2017-04-28 06:45] LABS: ALBUMIN 3.2 gm/dl (3.1-4.5); CREATININE 1.69 mg/dL (0.70-1.30); POTASSIUM 3.6 mmol/L (3.5-5.1)
[2017-04-28 08:00] VITALS: BP 135/89
[2017-04-28 11:18] VITALS: BP 102/48
[2017-04-28 12:00] VITALS: BP 108/48
[2017-04-28 16:48] VITALS: BP 99/62
[2017-04-28 20:07] VITALS: BP 106/62
[2017-04-29] VITALS: BP 121/81
[2017-04-29 07:52] LABS: CREATININE 1.63 mg/dL (0.70-1.30); POTASSIUM 3.5 mmol/L (3.5-5.1)
[2017-04-29 08:00] VITALS: BP 102/69
[2017-04-29 12:00] VITALS: BP 98/50
[2017-04-29 16:00] VITALS: BP 100/48
[2017-04-29 20:00] VITALS: BP 123/68
[2017-04-30] VITALS: BP 126/57
[2017-04-30 06:52] LABS: CREATININE 1.55 mg/dL (0.70-1.30); POTASSIUM 3.6 mmol/L (3.5-5.1)
[2017-04-30 08:00] VITALS: BP 104/56
[2017-04-30 12:00] VITALS: BP 108/59
[2017-04-30 16:00] VITALS: BP 117/63
[2017-04-30 20:00] VITALS: BP 119/53
[2017-05-01] VITALS: BP 127/55
[2017-05-01 06:46] LABS: CREATININE 1.41 mg/dL (0.70-1.30); POTASSIUM 3.6 mmol/L (3.5-5.1)
[2017-05-01 08:00] VITALS: BP 122/60
[2017-05-01 12:00] VITALS: BP 109/63
[2017-05-01 16:00] VITALS: BP 111/50
[2017-05-01 19:57] VITALS: BP 116/44
[2017-05-02] VITALS: BP 122/77
[2017-05-02 06:52] LABS: CREATININE 1.64 mg/dL (0.70-1.30); POTASSIUM 3.7 mmol/L (3.5-5.1)
[2017-05-02 08:00] VITALS: BP 104/64
[2017-05-02] MEDS ORDERED: LASIX40 MG PO (12:05)
== END 2017-05-02 12:53 | disposition other institution (70) | DRG 291 ==
LOC: ED 19:40 → 5E 20:53 → 4E 20:53 → ICCU 20:53 → EDHOLD 20:53 → ICCU 21:03 → 4E 04-22 13:41 → ICCU 04-25 13:13 → 5E 04-27 17:47
PROVIDERS: Hospitalist; Internal Medicine; Internal Medicine Cardiovascular Disease; Internal Medicine Critical Care Medicine; Internal Medicine Hospice and Palliative Medicine; Psychiatry & Neurology Psychiatry; Student in an Organized Health Care Education/Training Program
PROC: 5A09357 Assistance with Respiratory Ventilation, Less than 24 Consecutive Hours, Continuous Positive Airway Pressure (ICD-10-PCS; principal; 2017-04-25)
PROC: 4A02XM4 Measurement of Cardiac Total Activity, External Approach (ICD-10-PCS; 2017-04-26)
PROC: 3E073KZ Introduction of Other Diagnostic Substance into Coronary Artery, Percutaneous Approach (ICD-10-PCS; 2017-04-26)
PROC: 5A09357 Assistance with Respiratory Ventilation, Less than 24 Consecutive Hours, Continuous Positive Airway Pressure (ICD-10-PCS; 2017-04-27)
PROC: 5A09357 Assistance with Respiratory Ventilation, Less than 24 Consecutive Hours, Continuous Positive Airway Pressure (ICD-10-PCS; 2017-04-30)
PROC: 5A09357 Assistance with Respiratory Ventilation, Less than 24 Consecutive Hours, Continuous Positive Airway Pressure (ICD-10-PCS; 2017-05-01)
DX: I13.0 Hypertensive heart and chronic kidney disease with heart failure and stage 1 through stage 4 chronic kidney disease, or unspecified chronic kidney disease (principal); G93.41 Metabolic encephalopathy; N17.9 Acute kidney failure, unspecified; J96.01 Acute respiratory failure with hypoxia; J96.02 Acute respiratory failure with hypercapnia; J96.12 Chronic respiratory failure with hypercapnia; I50.43 Acute on chronic combined systolic (congestive) and diastolic (congestive) heart failure; E87.0 Hyperosmolality and hypernatremia; E87.2 Acidosis; F23 Brief psychotic disorder; Z68.41 Body mass index [BMI] 40.0-44.9, adult; J44.1 Chronic obstructive pulmonary disease with (acute) exacerbation; E11.65 Type 2 diabetes mellitus with hyperglycemia; I48.2 Chronic atrial fibrillation; N40.0 Benign prostatic hyperplasia without lower urinary tract symptoms; L30.9 Dermatitis, unspecified; F60.89 Other specific personality disorders; N18.3 Chronic kidney disease, stage 3 (moderate); I25.5 Ischemic cardiomyopathy; E66.01 Morbid (severe) obesity due to excess calories; E11.22 Type 2 diabetes mellitus with diabetic chronic kidney disease; E11.649 Type 2 diabetes mellitus with hypoglycemia without coma; D72.819 Decreased white blood cell count, unspecified; D53.9 Nutritional anemia, unspecified; D72.9 Disorder of white blood cells, unspecified; E78.5 Hyperlipidemia, unspecified; I25.10 Atherosclerotic heart disease of native coronary artery without angina pectoris; Z87.891 Personal history of nicotine dependence; Z95.1 Presence of aortocoronary bypass graft; Z79.82 Long term (current) use of aspirin; Z79.84 Long term (current) use of oral hypoglycemic drugs; Z79.899 Other long term (current) drug therapy; I25.2 Old myocardial infarction; Z88.5 Allergy status to narcotic agent; Z88.2 Allergy status to sulfonamides; Z80.0 Family history of malignant neoplasm of digestive organs; Z82.0 Family history of epilepsy and other diseases of the nervous system

== ENCOUNTER → 2017-06-26 | Day surgery (SDC) | payer MEDICARE, OTHER ==
[~2017-06-26] VITALS: Ht 167.6 cm; Wt 106.6 kg
[~2017-06-26] MED LIST changes: +AFREZZA SQ; +BUMETANIDE2 MG PO; +GLYBURIDE5 MG PO; +LASIX40 MG PO; +NOVOLOG 70/30 M10 ML SC; +POTASSIUM CHLO10 ME5 PO; +TRICOR48 MG PO; +ZOCOR20 MG PO
--- NOTE | ~2017-06-26 | O ---
[place], [place] OPERATIVE NOTE NAME: FAN ELIZABETH [facility] #: [id number] UNIT #: [id number] ROOM: DOCTOR: JEFF OLVERA MD BIRTHDATE: [birth year] DOS: 06/26/2017 PREOPERATIVE DIAGNOSIS: Cataract, right eye. POSTOPERATIVE DIAGNOSIS: Cataract, right eye. OPERATION: Extracapsular cataract extraction by phacoemulsification with posterior chamber intraocular lens implantation, right eye. ANESTHESIA: Monitored standby. OPERATIVE FINDINGS AND PROCEDURE: 2% Xylocaine topical anesthetic gel was applied to the eye in the preop area. The patient was taken to the operating room and prepped and draped in the standard fashion for sterile intraocular surgery. A time out procedure was performed verifying correct patient, correct site and corrects lens with Jameson Olvera M.D. The operating microscope was swung into position and the lid speculum was inserted. Using a Lidia paracentesis blade, a paracentesis was made through clear cornea. Viscoelastic was used to fill the anterior chamber. Using a metal keratome a 2.4 mm self-sealing clear corneal cataract incision was made temporally at the limbus. Using a pre-bent 25 gauge cystotome needle, a standard continuous curvilinear capsulorrhexis was performed. The anterior capsule was removed with forceps. The lens nucleus was hydrodissected and phacoemulsified in the posterior chamber. Cortical material was removed with the irrigation aspiration hand piece and the posterior capsule was then polished with a curet under irrigation. The posterior chamber and capsular bag were filled with viscoelastic. A posterior chamber intraocular lens manufactured by: [employer], Model #[id number], and 19.0 diopters in strength were then inserted into the posterior chamber and within the capsular bag using the lens cartridge and injector system. Viscoelastic was removed using the irrigation aspiration handpiece. The anterior chamber was filled with balanced salt solution through the paracentesis. Both the paracentesis site and cataract incisions were hydrated with BSS and verified to be water-tight and self-sealing. Cefuroxime 1 mg/0.1 mL was injected into the anterior chamber through the paracentesis site. The incision checked to be water-tight using a Weck-Paola sponge. The integrity of the cataract wound and ocular tension were checked. Lid speculum and drapes were removed. The patient was transferred from the operating room to the recovery room in satisfactory condition. [place], [place] OPERATIVE NOTE NAME: FAN ELIZABETH UNIT #: [id number] ROOM: DOCTOR: JEFF OLVERA MD BIRTHDATE: [birth year] JEFF OLVERA MD CM:OPRECORD:OPERATIVE NOTE [id number] JEFF OLVERA MD 06/26/17 0953 interface
[2017-06-26 08:41] VITALS: BP 129/66
[2017-06-26 09:41] VITALS: BP 116/54
[2017-06-26 09:56] VITALS: BP 115/69
[2017-06-26 10:07] VITALS: BP 113/60
== END | disposition home or self-care (01) ==
LOC: SDC 06-21 14:00
DX: E11.36 Type 2 diabetes mellitus with diabetic cataract (principal); H25.11 Age-related nuclear cataract, right eye; I11.0 Hypertensive heart disease with heart failure; I50.9 Heart failure, unspecified; I25.10 Atherosclerotic heart disease of native coronary artery without angina pectoris; E78.00 Pure hypercholesterolemia, unspecified; Z87.891 Personal history of nicotine dependence; Z98.1 Arthrodesis status; I25.2 Old myocardial infarction; Z95.1 Presence of aortocoronary bypass graft; Z79.899 Other long term (current) drug therapy; E66.01 Morbid (severe) obesity due to excess calories; Z68.37 Body mass index [BMI] 37.0-37.9, adult

== ENCOUNTER → 2017-07-24 | Day surgery (SDC) | payer MEDICARE, OTHER ==
[~2017-07-24] VITALS: Ht 167.6 cm; Wt 106.6 kg
[~2017-07-24] MED LIST changes: +ELIQUIS5 M1 PO
--- NOTE | ~2017-07-24 | O ---
[place], [place] OPERATIVE NOTE NAME: FAN ELIZABETH [facility] #: [id number] UNIT #: [id number] ROOM: DOCTOR: JEFF OLVERA MD BIRTHDATE: [birth year] DOS: 07/24/2017 PREOPERATIVE DIAGNOSIS: Cataract, left eye. POSTOPERATIVE DIAGNOSIS: Cataract, left eye. OPERATION: Extracapsular cataract extraction by phacoemulsification with posterior chamber intraocular lens implantation, left eye. ANESTHESIA: Monitored standby. OPERATIVE FINDINGS AND PROCEDURE: 2% Xylocaine topical anesthetic gel was applied to the eye in the preop area. The patient was taken to the operating room and prepped and draped in the standard fashion for sterile intraocular surgery. A time out procedure was performed verifying correct patient, correct site and corrects lens with Jameson Ovlera M.D. The operating microscope was swung into position and the lid speculum was inserted. Using a Lidia paracentesis blade, a paracentesis was made through clear cornea. Viscoelastic was used to fill the anterior chamber. Using a metal keratome a 2.4 mm self-sealing clear corneal cataract incision was made temporally at the limbus. Using a pre-bent 25 gauge cystotome needle, a standard continuous curvilinear capsulorrhexis was performed. The anterior capsule was removed with forceps. The lens nucleus was hydrodissected and phacoemulsified in the posterior chamber. Cortical material was removed with the irrigation aspiration hand piece and the posterior capsule was then polished with a curet under irrigation. The posterior chamber and capsular bag were filled with viscoelastic. A posterior chamber intraocular lens manufactured by: [employer], Model #[id number], and 19.0 diopters in strength were then inserted into the posterior chamber and within the capsular bag using the lens cartridge and injector system. Viscoelastic was removed using the irrigation aspiration handpiece. The anterior chamber was filled with balanced salt solution through the paracentesis. Both the paracentesis site and cataract incisions were hydrated with BSS and verified to be water-tight and self-sealing. Cefuroxime 1 mg/0.1 mL was injected into the anterior chamber through the paracentesis site. The incision checked to be water-tight using a Weck-Paola sponge. The integrity of the cataract wound and ocular tension were checked. Lid speculum and drapes were removed. The patient was transferred from the operating room to the recovery room in satisfactory condition. [place], [place] OPERATIVE NOTE NAME: FAN ELIZABETH UNIT #: [id number] ROOM: DOCTOR: JEFF OLVERA MD BIRTHDATE: [birth year] JEFF OLVERA MD CM:OPRECORD:OPERATIVE NOTE [id number] JEFF OLVERA MD 07/24/17 1050 interface
[2017-07-24 09:57] VITALS: BP 133/82
[2017-07-24 10:32] VITALS: BP 149/90
[2017-07-24 10:48] VITALS: BP 154/90
[2017-07-24 10:57] VITALS: BP 153/93
== END | disposition home or self-care (01) ==
LOC: SDC 07-18 13:15
DX: E11.36 Type 2 diabetes mellitus with diabetic cataract (principal); H25.812 Combined forms of age-related cataract, left eye; I25.2 Old myocardial infarction; I25.10 Atherosclerotic heart disease of native coronary artery without angina pectoris; E78.00 Pure hypercholesterolemia, unspecified; I50.9 Heart failure, unspecified; I11.0 Hypertensive heart disease with heart failure

== ENCOUNTER → 2017-08-21 | Outpatient (CLI) | payer MEDICARE, OTHER | END | disposition home or self-care (01) | LOC: RESCLI 03:15 | DX: I13.0 Hypertensive heart and chronic kidney disease with heart failure and stage 1 through stage 4 chronic kidney disease, or unspecified chronic kidney disease (principal); E11.22 Type 2 diabetes mellitus with diabetic chronic kidney disease; N18.3 Chronic kidney disease, stage 3 (moderate); I50.42 Chronic combined systolic (congestive) and diastolic (congestive) heart failure; E78.5 Hyperlipidemia, unspecified; E55.9 Vitamin D deficiency, unspecified; I48.2 Chronic atrial fibrillation; N40.0 Benign prostatic hyperplasia without lower urinary tract symptoms; R00.1 Bradycardia, unspecified; Z76.89 Persons encountering health services in other specified circumstances; Z79.4 Long term (current) use of insulin ==

== ENCOUNTER → 2018-02-12 | Outpatient (CLI) | payer MEDICARE, OTHER | END | disposition home or self-care (01) | LOC: RESCLI 02:41 | DX: I13.0 Hypertensive heart and chronic kidney disease with heart failure and stage 1 through stage 4 chronic kidney disease, or unspecified chronic kidney disease (principal); E11.22 Type 2 diabetes mellitus with diabetic chronic kidney disease; N18.3 Chronic kidney disease, stage 3 (moderate); I50.42 Chronic combined systolic (congestive) and diastolic (congestive) heart failure; E55.9 Vitamin D deficiency, unspecified; N40.0 Benign prostatic hyperplasia without lower urinary tract symptoms; E78.5 Hyperlipidemia, unspecified; I48.2 Chronic atrial fibrillation; H61.21 Impacted cerumen, right ear; E66.9 Obesity, unspecified; Z79.4 Long term (current) use of insulin; Z68.33 Body mass index [BMI] 33.0-33.9, adult; Z98.42 Cataract extraction status, left eye; Z98.41 Cataract extraction status, right eye ==

== ENCOUNTER → 2018-05-28 | Outpatient (CLI) | payer MEDICARE, OTHER ==
[2018-05-28 09:29] LABS: ALBUMIN 3.4 gm/dl (3.1-4.5); CREATININE 1.74 mg/dL (0.70-1.30); TOTAL PROTEIN 6.9 gm/dL (6.4-8.2)
== END | disposition home or self-care (01) ==
LOC: LAB 02:46 → RESCLI 02:46
PROVIDERS: Student in an Organized Health Care Education/Training Program
DX: E55.9 Vitamin D deficiency, unspecified (principal); I13.0 Hypertensive heart and chronic kidney disease with heart failure and stage 1 through stage 4 chronic kidney disease, or unspecified chronic kidney disease; E11.22 Type 2 diabetes mellitus with diabetic chronic kidney disease; N18.3 Chronic kidney disease, stage 3 (moderate); I50.32 Chronic diastolic (congestive) heart failure; I50.42 Chronic combined systolic (congestive) and diastolic (congestive) heart failure; I25.10 Atherosclerotic heart disease of native coronary artery without angina pectoris; N40.0 Benign prostatic hyperplasia without lower urinary tract symptoms; I48.2 Chronic atrial fibrillation; E78.5 Hyperlipidemia, unspecified; E66.9 Obesity, unspecified; Z79.82 Long term (current) use of aspirin; Z79.4 Long term (current) use of insulin; Z79.899 Other long term (current) drug therapy

== ENCOUNTER → 2018-08-25 | Outpatient (CLI) | payer MEDICARE, OTHER | END | disposition home or self-care (01) | LOC: US 12:28 | DX: N28.1 Cyst of kidney, acquired (principal) ==

== ENCOUNTER → 2018-09-09 | Outpatient (CLI) | payer MEDICARE, OTHER | END | disposition home or self-care (01) | LOC: RESCLI 00:08 | DX: Z23 Encounter for immunization (principal); B19.10 Unspecified viral hepatitis B without hepatic coma; I13.0 Hypertensive heart and chronic kidney disease with heart failure and stage 1 through stage 4 chronic kidney disease, or unspecified chronic kidney disease; E11.22 Type 2 diabetes mellitus with diabetic chronic kidney disease; N18.3 Chronic kidney disease, stage 3 (moderate); I50.43 Acute on chronic combined systolic (congestive) and diastolic (congestive) heart failure; I25.10 Atherosclerotic heart disease of native coronary artery without angina pectoris; E78.5 Hyperlipidemia, unspecified ==

== ENCOUNTER → 2018-12-24 | Outpatient (CLI) | payer MEDICARE, OTHER | END | disposition home or self-care (01) | LOC: RESCLI 02:05 | DX: I48.21 Permanent atrial fibrillation (principal); E78.5 Hyperlipidemia, unspecified; E55.9 Vitamin D deficiency, unspecified; I13.0 Hypertensive heart and chronic kidney disease with heart failure and stage 1 through stage 4 chronic kidney disease, or unspecified chronic kidney disease; E11.22 Type 2 diabetes mellitus with diabetic chronic kidney disease; N18.3 Chronic kidney disease, stage 3 (moderate); I50.42 Chronic combined systolic (congestive) and diastolic (congestive) heart failure; I25.10 Atherosclerotic heart disease of native coronary artery without angina pectoris; B35.4 Tinea corporis; K59.00 Constipation, unspecified; Z53.20 Procedure and treatment not carried out because of patient's decision for unspecified reasons; Z79.899 Other long term (current) drug therapy; Z88.8 Allergy status to other drugs, medicaments and biological substances ==

== ENCOUNTER → 2019-02-04 | Outpatient (CLI) | payer MEDICARE, OTHER ==
[2019-02-04 13:45] LABS: BASO % 0.5 % (0.0-1.0); EOS # 0.3 10*3/uL (0.0-0.4); EOS % 3.8 % (1.0-4.0); HEMATOCRIT 40.2 % (42.0-52.0); HEMOGLOBIN 13.3 g/dl (14.0-18.0); LYMPH % 26.1 % (27.0-41.0); MEAN CELL VOLUME 95.9 fl (80.0-94.0); MEAN CORPUSCULAR HGB 31.7 pg (27.0-31.0); MEAN CORPUSCULAR HGB CONC 33.1 g/dl (33.0-37.0); MEAN PLATELET VOLUME 10.6 fl (9.6-12.3); MONO # 0.6 10*3/uL (0.1-1.0); MONO % 8.3 % (3.0-9.0); NEUT # 4.6 10*3/uL (2.3-7.9); NEUT % 60.9 % (47.0-73.0); PLATELET COUNT AUTOMATED 165 10*3/uL (130-400); RED BLOOD COUNT 4.19 10*6/uL (4.50-5.90); WHITE BLOOD COUNT 7.6 10*3/uL (4.8-10.8)
[2019-02-04 14:03] LABS: ALBUMIN 3.6 gm/dl (3.1-4.5); CREATININE 1.71 mg/dL (0.70-1.30); PHOSPHOROUS 3.2 mg/dL (2.5-4.9); POTASSIUM 3.7 mmol/L (3.5-5.1)
[2019-02-04 14:05] LABS: BILIRUBIN NEGATIVE (NEGATIVE); BLOOD NEGATIVE (NEGATIVE); CLARITY CLEAR (CLEAR); COLOR YELLOW (YELLOW); GLUCOSE NEGATIVE (NEGATIVE); KETONE NEGATIVE (NEGATIVE); LEUKO ESTERASE NEGATIVE (NEGATIVE); NITRITE NEGATIVE (NEGATIVE); PH 5.5 (5.0-9.0); SPECIFIC GRAVITY 1.015 (1.005-1.030); UROBILINOGEN 0.2 E.U./dl (0.2-1.0)
[2019-02-04 14:13] LABS: BACTERIA TRACE; EPITHELIAL CELLS 0-2; WBC 0-2 wbc/hpf (0-5)
[2019-02-04 14:55] LABS: FERRITIN 72.4 ng/mL (22.0-322.0); PTH INTACT 31.2 pg/mL (18.5-88.0); VITAMIN D, 25-HYDROXY 75.9 ng/mL (30-100)
== END | disposition home or self-care (01) ==
LOC: LAB 12:43
PROVIDERS: Internal Medicine Nephrology
DX: E55.9 Vitamin D deficiency, unspecified (principal); E11.22 Type 2 diabetes mellitus with diabetic chronic kidney disease; D63.1 Anemia in chronic kidney disease; N18.3 Chronic kidney disease, stage 3 (moderate); N25.81 Secondary hyperparathyroidism of renal origin

== ENCOUNTER → 2019-04-09 | Outpatient (CLI) | payer MEDICARE, OTHER | END | disposition home or self-care (01) | LOC: RESCLI 01:20 | DX: E11.22 Type 2 diabetes mellitus with diabetic chronic kidney disease (principal); I13.0 Hypertensive heart and chronic kidney disease with heart failure and stage 1 through stage 4 chronic kidney disease, or unspecified chronic kidney disease; N40.0 Benign prostatic hyperplasia without lower urinary tract symptoms; I50.42 Chronic combined systolic (congestive) and diastolic (congestive) heart failure; I48.20 Chronic atrial fibrillation, unspecified; E66.9 Obesity, unspecified; K59.00 Constipation, unspecified; N18.3 Chronic kidney disease, stage 3 (moderate); Z79.4 Long term (current) use of insulin; Z79.899 Other long term (current) drug therapy ==

== ENCOUNTER 2019-06-01 13:31 | Inpatient (IN) | payer MEDICARE, OTHER ==
[~2019-06-01] VITALS: Ht 167.6 cm; Wt 101.3 kg
[2019-06-01] VITALS (8 sets, daily range): BP systolic 103–130; BP diastolic 53–74
[2019-06-01 13:57] LABS: BASO % 0.6 % (0.0-1.0); EOS # 0.3 10*3/uL (0.0-0.4); EOS % 3.9 % (1.0-4.0); HEMOGLOBIN 13.1 g/dl (14.0-18.0); LYMPH # 1.9 10*3/uL (1.3-4.4); LYMPH % 27.8 % (27.0-41.0); MEAN CELL VOLUME 95.8 fl (80.0-94.0); MEAN CORPUSCULAR HGB 32.2 pg (27.0-31.0); MEAN CORPUSCULAR HGB CONC 33.6 g/dl (33.0-37.0); MEAN PLATELET VOLUME 10.1 fl (9.6-12.3); MONO # 0.6 10*3/uL (0.1-1.0); MONO % 8.1 % (3.0-9.0); NEUT # 4.1 10*3/uL (2.3-7.9); NEUT % 59.2 % (47.0-73.0); PLATELET COUNT AUTOMATED 166 10*3/uL (130-400); RED BLOOD COUNT 4.07 10*6/uL (4.50-5.90); RED CELL DISTRI WIDTH 13.9 % (0-14.5)
[2019-06-01 14:09] LABS: ACT PARTIAL THROMBO TIME 44.1 SECONDS (20.0-32.1); INTERNATIONAL NORM RATIO 1.6 (2.0-3.5)
[2019-06-01 14:14] LABS: ALBUMIN 3.5 gm/dl (3.1-4.5); ALKALINE PHOSPHATASE 49 U/L (45-117); BUN 25 mg/dl (7-24); CHLORIDE 105 mmol/L (98-107); CREATININE 1.62 mg/dL (0.70-1.30); POTASSIUM 3.4 mmol/L (3.5-5.1); SGOT/AST 16 IU/L (3-35); SGPT/ALT 23 U/L (12-78); SODIUM 139 mmol/L (136-145); TOTAL PROTEIN 6.9 gm/dL (6.4-8.2)
[2019-06-01 14:17] LABS: TROPONIN I < 0.015 ng/ml (<0.045)
--- NOTE | 2019-06-01 14:39 | NUR ---
SITTING SEMI FOWLERS IN BED VISITING WITH FAMILY. NO DISTRESS, STABLE.
--- NOTE | 2019-06-01 20:17 | NUR ---
A 78, admitted to , under the services of MARY Granger DO with a diagnosis of CHF, CHEST PAIN RULE OUT ACUTE FL. Chief complaint is CHEST PAIN. Patient arrived via stretcher from ER. Monitor applied. Initial assessment completed. Vital signs taken and recorded. MARY GRANGER DO notified of admission to the unit. Orders received. See assessment for past medical history, medications and allergies. Patient and/or family oriented to unit. [address] visitation policy reviewed. Clothing/patient valuable form completed. MARLENE JON
[2019-06-01] MEDS ORDERED: ASPIRIN ADULT L81 M2 PO (20:29)
--- NOTE | 2019-06-01 20:30 | NUR ---
PT BROUGHT IN BIPAP FROM HOME. MAINTENANCE CALLED. PER MAINTENANCE BIPAP IS GOOD TO GO.
[2019-06-01] MEDS ORDERED: HYDROCORT 2.5%-30 GM T (20:35)
--- NOTE | 2019-06-01 20:39 | NUR ---
ANSWERING SERVICE NOTIFIED OF NEW CONSULT.
--- NOTE | 2019-06-01 20:42 | NUR ---
CALLED BACK AND SAYS HE WILL DO A STRESS TEST TOMORROW.
[2019-06-02] VITALS: BP 125/73
--- NOTE | 2019-06-02 00:07 | NUR ---
PT RESTING IN BED. NO COMPLAINTS AT THIS TIME. RESPIRATIONS EASY AND REGULAR. CALL LIGHT WITHIN REACH. WILL CONTINUE TO MONITOR.
[2019-06-02 06:38] LABS: BASO % 0.5 % (0.0-1.0); EOS # 0.3 10*3/uL (0.0-0.4); EOS % 3.9 % (1.0-4.0); HEMATOCRIT 40.4 % (42.0-52.0); HEMOGLOBIN 13.3 g/dl (14.0-18.0); LYMPH # 2.6 10*3/uL (1.3-4.4); LYMPH % 31.4 % (27.0-41.0); MEAN CELL VOLUME 95.1 fl (80.0-94.0); MEAN CORPUSCULAR HGB 31.3 pg (27.0-31.0); MEAN CORPUSCULAR HGB CONC 32.9 g/dl (33.0-37.0); MEAN PLATELET VOLUME 10.6 fl (9.6-12.3); MONO # 0.7 10*3/uL (0.1-1.0); MONO % 8.5 % (3.0-9.0); NEUT # 4.5 10*3/uL (2.3-7.9); NEUT % 55.3 % (47.0-73.0); PLATELET COUNT AUTOMATED 172 10*3/uL (130-400); RED BLOOD COUNT 4.25 10*6/uL (4.50-5.90); RED CELL DISTRI WIDTH 13.9 % (0-14.5); WHITE BLOOD COUNT 8.2 10*3/uL (4.8-10.8)
[2019-06-02 07:06] LABS: ALBUMIN 3.5 gm/dl (3.1-4.5); CREATININE 1.62 mg/dL (0.70-1.30); PHOSPHOROUS 3.4 mg/dL (2.5-4.9); POTASSIUM 3.3 mmol/L (3.5-5.1); TOTAL PROTEIN 6.8 gm/dL (6.4-8.2)
[2019-06-02 07:12] LABS: FREE T4 0.94 ng/dl (0.76-1.46); THYROID STIM HORMONE (HS) 3.85 uIU/ml (0.358-4.75)
[2019-06-02 07:29] LABS: VITAMIN D, 25-HYDROXY 71.3 ng/mL (30-100)
[2019-06-02 08:00] VITALS: BP 114/58
--- NOTE | 2019-06-02 08:22 | NUR ---
PT RESTING IN BED. NO DISTRESS NOTED. WILL MONITOR
--- NOTE | 2019-06-02 09:00 | NUR ---
Isotope Technologist in to talk to patient. Patient states lives at home with . There are no steps in the home. Physician: resident clinic Pharmacy: [facility] health services: none Patient's level of ADLs: INDEPENDENT Patient has working utilities: all working DME: none Follow-up physician's appointment after d/c: will be made by hospsitalist nurse director upon discharge Does patient want to access PORTAL?: no Discharge plan discussed with patient, he lives at home with , he states he is independent in adls and ambulation, he will return home when medically stable and denies any home needs. CHARISSA DURAND
--- NOTE | 2019-06-02 10:25 | NUR ---
INFORMED CONSENT SIGNED FOR LEXISCAN STRESS TEST WITH DR. HERNDON. RESTING EKG A-FIB,RBBB, HR 65, BP 122/66. PULSE OX 98% AND LUNGS CLEAR BILATERALLY. COMPLETED ONE MINUTE OF LEXISCAN PROTOCOL RECEIVING LEXISCAN 0.4MG OVER 10 SECONDS. ISOLATED PVC NOTED WITH NON DIAGNOSTIC ST CHANGES. PT HAD NOT C/O. LAST RECOVERY HR 77, BP 104/56. WAITING NUCLEAR SCANNING IN STABLE CONDITION.
[2019-06-02 12:00] VITALS: BP 120/66
[2019-06-02] MEDS ORDERED: COREG12.5 M1 PO (14:32)
--- NOTE | 2019-06-02 15:15 | NUR ---
Discharge instructions reviewed with patient/family. Patient receptive and verbalizes understanding. Follow-up care arranged. Written instructions given to patient/family. AMANDA ALVAREZ
== END 2019-06-02 16:55 | disposition home or self-care (01) | DRG 205 ==
LOC: ED 13:31 → EDHOLD 16:06 → 4E 16:06
PROVIDERS: Emergency Medicine; Internal Medicine; ADMIT Family Medicine
PROC: 4A02XM4 Measurement of Cardiac Total Activity, External Approach (ICD-10-PCS; principal; 2019-06-02)
PROC: 3E073KZ Introduction of Other Diagnostic Substance into Coronary Artery, Percutaneous Approach (ICD-10-PCS; principal; 2019-06-02)
DX: M94.0 Chondrocostal junction syndrome [Tietze] (principal); I50.43 Acute on chronic combined systolic (congestive) and diastolic (congestive) heart failure; Z68.41 Body mass index [BMI] 40.0-44.9, adult; I13.0 Hypertensive heart and chronic kidney disease with heart failure and stage 1 through stage 4 chronic kidney disease, or unspecified chronic kidney disease; I38 Endocarditis, valve unspecified; E87.6 Hypokalemia; E11.65 Type 2 diabetes mellitus with hyperglycemia; E78.5 Hyperlipidemia, unspecified; D53.9 Nutritional anemia, unspecified; N18.3 Chronic kidney disease, stage 3 (moderate); E11.22 Type 2 diabetes mellitus with diabetic chronic kidney disease; E66.01 Morbid (severe) obesity due to excess calories; N40.0 Benign prostatic hyperplasia without lower urinary tract symptoms; I48.0 Paroxysmal atrial fibrillation; Z95.1 Presence of aortocoronary bypass graft; Z80.3 Family history of malignant neoplasm of breast; Z80.0 Family history of malignant neoplasm of digestive organs; Z82.0 Family history of epilepsy and other diseases of the nervous system; Z79.01 Long term (current) use of anticoagulants; Z79.899 Other long term (current) drug therapy; Z79.82 Long term (current) use of aspirin; Z79.4 Long term (current) use of insulin; Z87.891 Personal history of nicotine dependence

== ENCOUNTER → 2019-10-28 | Outpatient (CLI) | payer MEDICARE, OTHER ==
[~2019-10-28] MED LIST changes: +ASPIRIN ADULT L81 M2 PO; +COREG12.5 M1 PO; +HYDROCORT 2.5%-30 GM T
[2019-10-28 13:44] LABS: BASO % 0.4 % (0.0-1.0); EOS # 0.2 10*3/uL (0.0-0.4); EOS % 3.3 % (1.0-4.0); HEMATOCRIT 40.7 % (42.0-52.0); LYMPH # 2.1 10*3/uL (1.3-4.4); LYMPH % 29.9 % (27.0-41.0); MEAN CELL VOLUME 96.7 fl (80.0-94.0); MEAN CORPUSCULAR HGB 31.1 pg (27.0-31.0); MEAN CORPUSCULAR HGB CONC 32.2 g/dl (33.0-37.0); MEAN PLATELET VOLUME 10.1 fl (9.6-12.3); MONO # 0.7 10*3/uL (0.1-1.0); NEUT # 3.9 10*3/uL (2.3-7.9); NEUT % 56.1 % (47.0-73.0); PLATELET COUNT AUTOMATED 179 10*3/uL (130-400); RED BLOOD COUNT 4.21 10*6/uL (4.50-5.90); RED CELL DISTRI WIDTH 13.7 % (0-14.5)
[2019-10-28 14:02] LABS: ALBUMIN 3.8 gm/dl (3.1-4.5); CREATININE 1.73 mg/dL (0.70-1.30); POTASSIUM 4.1 mmol/L (3.5-5.1)
[2019-10-28 14:25] LABS: BILIRUBIN NEGATIVE (NEGATIVE); BLOOD NEGATIVE (NEGATIVE); CLARITY CLEAR (CLEAR); COLOR YELLOW (YELLOW); GLUCOSE NEGATIVE (NEGATIVE); KETONE NEGATIVE (NEGATIVE); LEUKO ESTERASE NEGATIVE (NEGATIVE); NITRITE NEGATIVE (NEGATIVE); SPECIFIC GRAVITY 1.015 (1.005-1.030); UROBILINOGEN 0.2 E.U./dl (0.2-1.0)
[2019-10-28 14:27] LABS: URINE CREATININE RANDOM 88.3 mg/dL
[2019-10-28 14:35] LABS: BACTERIA TRACE; EPITHELIAL CELLS 0-2; WBC 0-2 wbc/hpf (0-5)
[2019-10-28 14:52] LABS: VITAMIN D, 25-HYDROXY 73.8 ng/mL (30-100)
[2019-10-28 14:53] LABS: PTH INTACT 29.3 pg/mL (18.5-88.0)
== END | disposition home or self-care (01) ==
LOC: LAB 13:07
PROVIDERS: Internal Medicine Nephrology
DX: E11.22 Type 2 diabetes mellitus with diabetic chronic kidney disease (principal); N18.3 Chronic kidney disease, stage 3 (moderate); Z79.899 Other long term (current) drug therapy

== ENCOUNTER 2019-12-24 20:27 | Emergency (ER) | payer MEDICARE, OTHER | END 2019-12-24 23:31 | disposition E | LOC: ED 20:27 | DX: I46.9 Cardiac arrest, cause unspecified (principal); Z79.82 Long term (current) use of aspirin; Z79.899 Other long term (current) drug therapy; Z87.891 Personal history of nicotine dependence ==